=== PATIENT | female | born 1950 ===

== ENCOUNTER 2023-01-09 14:30 | Outpatient (RCR) | payer OTHER, SELFPAY ==
--- NOTE | 2022-10-24 14:46 | STOPEVAL1 ---
Assessment and note entered by Pebbles Sommer, PHD INTER[employer] Evaluation Information Assessment Status Evaluation Onset 1999 Subjective Information Patient reports she was diagnosed with Multiple Sclerosis, then Rheumatoid Arthritis, and recently Parkinson's disease, initiating medicine for the Parkinson's medicine in 2020. She reports she noticed tremors/shaking on the right side, her hand/arm and leg but symptoms have improved with medicine. Patient reports that she has always been a soft speaker however she noted that this past winter, she developed pneumonia with a cough. She stated that her x-rays/CT scans revealed pneumonia. She stated that there was pain when attempting to speak, that her voice remained inside the mouth and she was unable to get the words out. She wondered if the Parkinson's disease kept her from speaking. She also reports her tongue feels numb. Patient reports that her neurologist, Dr. Tran recommended her to try Speech Therapy. When asked about how her voice is today, she reports that friends and family usually tell her they cannot hear her. She states that she wondered about how clear her speech is however they mainly complain about her soft voice. At this time, she feels her speech sound productions are normal even though they are worse than they were before. When asked about swallowing, she stated that she feels there is something in the throat that wants to come out but can't come out. She states that she feels as if something is there, possibly mucous, but it never comes out. She was not sure if she truly had aspirated but she reports that she does have concerns with her swallowing, that perhaps difficulty swallowing contributed to her pneumonia and that she still has issues with her swallowing. She reports she never had a Modified Barium Swallow test to rule out aspiration. Reported Pain Level Pain Score 0: Self Report Assessment ST Clinical Summary VOICE EVALUATION The patient was seen for a Voice Evaluation after voicing concern that her vocal loudness was not adequate at the conversational level. See above for background. Today she states that her partner and other family members tell her that they are unable to hear her in co
--- NOTE | 2022-10-24 16:06 | OPREHPOC ---
Outpatient Therapy Plan of Care This is a Multidisciplinary Plan of Care that may contain components documented by all disciplines (PT, OT, and ST.) PT Problem 1 PT Problem #1 Knowledge Deficit PT Goal 1 Goal Independent with HEP Target Visit 8 PT Problem 2 PT Problem #2 Impaired Balance PT Goal 1 Goal able to do HERIBERTO LE tandem stance 30 seconds no UE support Target Visit 8 PT Problem 3 PT Problem #3 Impaired Strength PT Goal 1 Goal HERIBERTO LE grossly 4+/5 Target Visit 8 PT Problem 4 PT Problem #4 Impaired Endurance PT Goal 1 Goal able to walk 6 minute walk test while doing the walk test test. Target Visit [address] Problem #[address] Goal 1 Goal Demonstrate understanding of cause of voice disorder including reduced vocal loudness in noisy situations, characterized as: Inability to make self understood secondary to reduced vocal loudness. Target Visit [address] Problem #[address] Goal 1 Goal Patient will sustain ?ah? with adequate loudness/ increase of 4+ decibels, average by time of discharge. Target Visit 4 ST Goal 2 Goal Patient will participate in tasks to increase the strength of the vocal cords while maintaining appropriate use of vocal cords/avoiding over-use or abusive voice behaviors 90% of the time. Target Visit 4
--- NOTE | 2022-10-24 16:06 | PTOPEVAL1 ---
Assessment and note entered by Eleazar Thibodeaux, PT Evaluation Information Assessment Status Evaluation Diagnosis Multiple Sclerosis Subjective Information Patient has multiple diagnosis of Multiple Sclerosis and Parkinson's Disease. Also reports Rheumatoid Arthritis and an L3-L5 back surgery. Patient does 2 days a week Parkinson's class at the [facility] and tries to walk a mile 3 times a week. Reporting her pace is about an hour/mile. Patient reports falls but cannot remember the last time she had one. She also reports bad knees. Reported Pain Level Pain Score 0: Self Report Pain Score 0: Self Report Additional Pain Score Comments slight knee and back discomfort after evaluation Assessment PT Clinical Summary Mi is a 72 year old female coming into the clinic with a diagnosis of multiple sclerosis. She has weakness in her R ankle, L hip, and L knee along with an absent heel strike on the R side. Patient reports walking a mile 3 days a week, but does get winded walking 6 minutes. Physical therapy will work on endurance, balance, and strengthening, while also encouraging patient to sign up for extra [facility] classes or start using the machines there and not just the Parkinson's class. Plan of Care Interventions Electrical Stimulation,Gait Training,Hot Pack/Cold Pack,Manual Therapy,Neuro Re-education,Patient/ Caregiver Education,Therapeutic Activities, Therapeutic Exercise,Ultrasound Other Interventions cupping, taping, IASTM. PT Services Indicated Yes Treatment Frequency and 2x/wk for 4 weeks Duration These treatments will address the objective and functional deficits as defined above. The patient will be advanced safely and appropriately in order for the patient to progress towards his/her prior level of function. Additional exercises will be introduced and as well as a comprehensive home exercise program upon discharge, if needed, ?to ensure carryover of functional gains achieved in the clinic. This treatment plan has been reviewed and agreement upon by the patient.
--- NOTE | 2022-11-01 09:42 | PCPTNOTE ---
Patient called & cancelled scheduled appointment this date due to not able to make it.
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
--- NOTE | 2022-11-21 16:42 | PTOPDC ---
Assessment and note entered by Eleazar Thibodeaux, PT Evaluation Information Assessment Status Discharge Diagnosis Multiple Sclerosis Subjective Information Patient reports she is having a good day because she did not take her morning walk so she is full of energy. Patient reports no loss of balance since initial evaluation and feels like she is more aware and smarter concerning her balance. Reported Pain Level Pain Score 0: Self Report Pain Score 0: Self Report Assessment PT Clinical Summary Dwight is a 72 year old female coming into the clinic with a diagnosis of Multiple sclerosis. She was evaluated on 10/24/22 and has attended 9 sessions. The patient has met all of her goals and is independent with her HEP. Discharge from skilled physical therapy. Plan of Care PT Services Indicated No
--- NOTE | 2022-11-21 17:16 | STOPPROG ---
Assessment and note entered by Pebbles Sommer MEDICAL OFFICE ASSISTANT INSTRUCTOR Evaluation Information Assessment Status Progress (ST) Assessment Status Discharge (PT) Assessment ST Clinical Summary TREATMENT SUMMARY AND PROGRESS NOTE This patient was evaluated on 10/24 for voice treatment due to diagnoses of multiple sclerosis, rheumatoid arthritis, and Parkinson's disease contributing to reduced vocal volume. Patient stated that her partner has had significant difficulty hearing and understanding her speech between reduced vocal loudness and then also due to her [place], [place] accent. By the end of this period, patient was completing tasks to increase and maintain vocal loudness such that therapist was able to hear her 100% of the time. Patient reports that she has recently had enough confidence to speak to former colleagues in person and on the phone and stated that the colleague who speaks with her in their [place] language was able to understand her speech but that [place]ian listeners have had some difficulty understanding her between her reduced vocal volume (previously) and the foreign accent. Patient completed exercises today to address improved vocal loudness and she was 90% accurate. Goals for vocal loudness are met and discontinued. Patient reported that her partner still has difficulty understanding her in spite of increased vocal loudness and she requested additional sessions to address her dialect. She stated that she has a close [place]ian friend named Le but she is unable to produce the a sound required, pronouncing the name as, ashley ; she reported this distinction has made it difficult for her partner to know to whom patient is referring. Her speech sound productions were assessed and she was also noted to be unable to produce the /l/ sound and she exhibited the s/sh sounds were noted to be interchangeable which also contributed to confusion for her partner as he is unable to make the adjustments needed to decipher the word. Patient will be seen 1 time weekly for up to 5 visits for instruction of correct tongue placement for vowel and consonant sounds for use in the [place] language in order to improve par
--- NOTE | 2022-11-22 15:31 | OPREHPOC ---
Outpatient Therapy Plan of Care This is a Multidisciplinary Plan of Care that may contain components documented by all disciplines (PT, OT, and ST.) PT Problem 1 PT Problem #1 Knowledge Deficit PT Goal 1 Goal Independent with HEP Target Visit 8 Progress Met PT Problem 2 PT Problem #2 Impaired Balance PT Goal 1 Goal able to do HERIBERTO LE tandem stance 30 seconds no UE support Target Visit 8 Progress Met PT Problem 3 PT Problem #3 Impaired Strength PT Goal 1 Goal HERIBERTO LE grossly 4+/5 Target Visit 8 Progress Met PT Problem 4 PT Problem #4 Impaired Endurance PT Goal 1 Goal able to walk 6 minute walk test while doing the walk test test. Target Visit [address] Problem 1 ST Problem #[address] Goal 1 Goal Demonstrate understanding of cause of voice disorder including reduced vocal loudness in noisy situations, characterized as: Inability to make self understood secondary to reduced vocal loudness. Target Visit [address] Problem 2 ST Problem #[address] Goal 1 Goal Patient will sustain ?ah? with adequate loudness/ increase of 4+ decibels, average by time of discharge. Target Visit [address] Goal 2 Goal Patient will participate in tasks to increase the strength of the vocal cords while maintaining appropriate use of vocal cords/avoiding over-use or abusive voice behaviors 90% of the time. Target Visit [address] Problem 3 ST Problem #[address] Goal 1 Goal NEW 11/21/22: Patient will demonstrate good ability 90% of the time, to imitate, then produce spontaneously certain sounds of the Thai alph
--- NOTE | 2022-12-25 15:18 | STOPPROG ---
Assessment and note entered by Pebbles Sommer, LEATHER TANNER Assessment ST Clinical Summary The patient reports that she was re-evaluated on 11/2022 where she expressed that she feels that her spoken Welsh is not as clear as it used to be ( slurred speech ) when she was working and prior to the Parkinson's Disease diagnoses and even accelerated in the past few months. She states that she feels that her tongue feels thick and that it is not as flexible as it used to be. Patient stated that when she speaks briefly to workers at various establishments, they are able to understand her however she reports that her partner who has a hearing deficit, and then also her neighbors are demonstrating they do not always understand her by requiring her to repeat herself or offering her a blank look. She stated that she especially notices she is not always being understood when she is speaking on the phone and there is no visual cues to facilitate the communication. Patient reported that she was able to carry on a conversation with a girlfriend in both Faroese and Welsh and she reported that her girlfriend understood her but that her voice became fatigued by the end with softer vocal volume noted. Patient reported that she worked one day with Monique, a substitute speech pathologist, on 11/26, who instructed her in the use of appropriate vowel sounds for the [place] language. Patient then stated she suffered an eye infection for two full weeks and was unable to see stimulus pages that were sent home and therefore she did not practice much, if at all, since her last session with Monique. Today the patient presented with conversational speech at adequate loudness level. Of note, she was unable to produce the a sound as in can/bat . Patient also exhibited imprecise production of the following lingual sounds: /l,r/ and th sounds. Some of patient's issues are due to her [place] dialect, other deficits are secondary to mildly limited lingual movement possibly secondary to Parkinson's disease and Multiple Sclerosis. Patient will be resume being seen twice weekly for 2-4 weeks skilled Speech Therapy focusing on instruction in accurate lingual placement and
--- NOTE | 2023-01-09 16:12 | STOPDC ---
Assessment and note entered by BURTON Marshall Evaluation Information Assessment Status Discharge Reported Pain Level Pain Score 0: Self Report Pain Score 0: Self Report Assessment ST Clinical Summary SPEECH THERAPY AND TREATMENT SUMMARY The patient was seen for her final speech therapy session following initial evaluation on 10/24 with 12 subsequent treatment sessions focusing on vocal loudness and overall speech intelligibility. Patient had reported that her significant other and other family members were expressing either they could not hear her or could not understand her speech secondary to combination of decreased vocal volume and some mild issues with lingual placement both for vowels and consonants. Therapy initially focused on improving vocal loudness in order for patient to be more easily heard by significant other and family members; patient was able to increase vocal volume for adequate hearing by therapist and those goals were met although patient expressed that she did not have many opportunities to practice at home. Therapy focus then shifted to correct lingual placement for vowel and consonant productions and she exhibited improvement in all sound productions and was discharged with goals achieved this date. Patient's [place] accent continues to play a role in patient's overall speech intelligibility however this is not expected to change with further ST services. Plan of Care ST Services Indicated Yes
--- NOTE | 2023-01-09 16:16 | STOPDC ---
Assessment and note entered by BURTON Marshall Evaluation Information Assessment Status Discharge Reported Pain Level Pain Score 0: Self Report Pain Score 0: Self Report Assessment ST Clinical Summary SPEECH THERAPY AND TREATMENT SUMMARY The patient was seen for her final speech therapy session following initial evaluation on 10/24 with 12 subsequent treatment sessions focusing on vocal loudness and overall speech intelligibility. Patient had reported that her significant other and other family members were expressing either they could not hear her or could not understand her speech secondary to combination of decreased vocal volume and some mild issues with lingual placement both for vowels and consonants. Therapy initially focused on improving vocal loudness in order for patient to be more easily heard by significant other and family members; patient was able to increase vocal volume for adequate hearing by therapist and those goals were met although patient expressed that she did not have many opportunities to practice at home. Therapy focus then shifted to correct lingual placement for vowel and consonant productions and she exhibited improvement in all sound productions and was discharged with goals achieved this date. Patient's [place] accent plays a role in her overall intelligibility and that is not expected to change with additional ST services. Plan of Care ST Services Indicated No
== END 2023-01-10 14:32 | disposition home or self-care (01) ==
LOC: ANHST 14:30
PROVIDERS: PCP Internal Medicine; Visit Provider Psychiatry & Neurology Neurology
DX: G35 Multiple sclerosis (principal); R49.0 Dysphonia
CPT/HCPCS: 92507; 92524; 97110; 97112; 97140; 97161; 97530